=== PATIENT | female | born 1975 | race Caucasian/White ===

== ENCOUNTER 2016-12-27 22:31 | Emergency (ER) | payer OTHER ==
[~2016-12-27] VITALS: Ht 157.5 cm; Wt 83.2 kg
[~2016-12-27 22:31] MED LIST: MS CONTIN,ORAMO15 M1 PO; MS CONTIN,ORAMO30 MG PO; NEURONTIN300 MG PO; NOHOMEMEDS; PERCOCET 5/31 TABLET PO; ZANAFLEX4 M1 PO
[2016-12-28] MEDS ORDERED: BACTRIM,SEPT1 TABLET PO (00:48)
[2016-12-28 00:55] VITALS: BP 145/80
== END 2016-12-28 00:56 | disposition home or self-care (01) ==
LOC: EME 22:31
PROC: 0H97XZZ Drainage of Abdomen Skin, External Approach (ICD-10-PCS; principal; 2016-12-27)
DX: L02.214 Cutaneous abscess of groin (principal); Z79.891 Long term (current) use of opiate analgesic; F17.200 Nicotine dependence, unspecified, uncomplicated
CPT/HCPCS: 99281; 99283